=== PATIENT | female | born 1950 | race Caucasian/White ===

== ENCOUNTER 2017-08-22 23:02 | Emergency (ER) | payer MEDICARE, BC ==
--- NOTE | 2017-08-23 00:45 | EDM.PDOC ---
ED HPI GENERAL MEDICAL PROBLEM - General Chief Complaint: Respiratory Problem Stated Complaint: GOT A GEL IN HER MOUTH AND CAN'T STOP COUGHING Time Seen by Provider: 08/22/17 23:25 Source of Information: Reports: Patient History Limitations: Reports: No Limitations - History of Present Illness INITIAL COMMENTS - FREE TEXT/NARRATIVE: The patient had a scar to her upper lip. She saw her provider and she was put on some pracaderm a compounded substance from [facility] pharmacy. She put that on her lip tonight and she got some on her tongue and after that she got short of breath and started coughing. She had some gurgling lung sounds and her heard them. She is better now. She has no chest pain, fever, chills, abdominal pain, nausea or vomiting. Onset: Sudden Duration: Minutes: Severity: Moderate Improves with: Reports: None Worsens with: Reports: None Associated Symptoms: Reports: Cough, Shortness of Breath. Denies: Fever/Chills , Headaches, Nausea/Vomiting - Related Data Allergies Allergy/AdvReac Type Severity Reaction Status Date / Time sulfamethoxazole Allergy Hives Verified 08/22/17 23:08 [From Bactrim] trimethoprim [From Bactrim] Allergy Hives Verified 08/22/17 23:08 Home Meds: Home Meds . 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: Musculoskeletal History: Reports: Osteoarthritis, Other (See Below) Other Musculoskeletal History: Bunionectomy, - Past Surgical History Female Surgical History: Reports: Section Social & Family History - Tobacco Use Smoking Status *Q: Never Smoker ED ROS GENERAL - Review of Systems Review Of Systems: See Below Constitutional: Reports: No Symptoms HEENT: Reports: No Symptoms Respiratory: Reports: Shortness of Breath, Cough Cardiovascular: Reports: No Symptoms Endocrine: Reports: No Symptoms GI/Abdominal: Reports: No Symptoms : Reports: No Symptoms Musculoskeletal: Reports: No Symptoms Skin: Reports: No Symptoms ED EXAM, GENERAL - Physical Exam Exam: See Below Exam Limited By: No Limitations General Appearance: Alert, No Apparent Distress Ears: Normal External Exam Nose: Normal Inspection Head: Atraumatic, Normocephalic Neck: Normal Inspection Respiratory/Chest: No Respiratory Distress, Lungs Clear, Normal Breath Sounds Cardiovascular: Regular Rate, Rhythm, No Edema, No Murmur GI/Abdominal: Soft, Non-Tender, No Organomegaly Back Exam: Normal Inspection Extremities: Normal Inspection Neurological: Alert, Oriented, No Motor/Sensory Deficits Course - Vital Signs Last Recorded V/S: Last Vital Signs Temp 97.9 F 08/22/17 23:08 Pulse 99 08/22/17 23:08 Resp 16 08/22/17 23:08 BP 168/102 H 08/22/17 23:08 Pulse Ox 100 08/22/17 23:08 - Orders/Labs/Meds Orders: Active Orders 24 hr Category Date Time Status CXR [Chest 2V] [CR] Stat Exams 08/22/17 23:57 Taken - Re-Assessments/Exams Free Text/Narrative Re-Assessment/Exam: 08/23/17 00:47 I ordered a CXR and that looked good. I called poison control and they were not able to find any medicine like this and they said it is hard because it is compounded. He did not think he got enough to cause a toxic affect but she may have aspirated some and it is oily. Departure - Departure Time of Disposition: 01:00 Disposition: Home, Self-Care 01 Condition: Good Clinical Impression: Aspiration into airway Qualifiers: Encounter type: initial encounter Qualified Code(s): T17.908A - Unspecified foreign body in respiratory tract, part unspecified causing other injury, initial encounter - Discharge Information Referrals: Ileana Birmingham, RAIL OPERATIONS CONTROLLER [Primary Care Provider] - Forms: ED Department Discharge Additional Instructions: Call [facility] pharmacy on Friday and let them know what happened. Please return if you are worse. - My Orders Last 24 Hours: My Active Orders 08/22/17 23:57 CXR [Chest 2V] [CR] Stat - Assessment/Plan Last 24 Hours: My Active Orders 08/22/17 23:57 CXR [Chest 2V] [CR] Stat
--- NOTE | 2017-08-25 11:14 | CR ---
Chest: Two views of the chest were obtained. Comparison: No prior chest x-ray. Heart size is normal. Tortuous thoracic aorta is seen. Prior cervical spine surgery is noted. Equivocal increased perihilar markings are noted within the left side of the chest. Lungs otherwise are clear. Bony structures appear within normal limits for the patient's age. Impression: 1. Questionable left-sided bronchitis. 2. Other incidental findings as noted above. Diagnostic code #3
== END 2017-08-23 00:58 | disposition home or self-care (01) ==
LOC: JD.ED 23:02
DX: T17.890A Other foreign object in other parts of respiratory tract causing asphyxiation, initial encounter (principal); Z88.8 Allergy status to other drugs, medicaments and biological substances; Z88.2 Allergy status to sulfonamides
CPT/HCPCS: 71046; 71046-26; 99283

== ENCOUNTER 2019-04-14 07:30 | Inpatient (IN) | payer MEDICARE, BC ==
[~2019-04-14 07:30] MED LIST: Acetaminophen 325 MG Tab PO SCH; Acetaminophen/oxyCODONE 325-5 MG Tab PO PRN; Bisacodyl 5 MG Tab PO PRN; Cyclobenzaprine 10 MG Tab PO PRN; Lidocaine 1%/Sod Bicarbonate in NS 8.4% 1 ML Syringe IDERM PRN; Magnesium Hydroxide 400 MG/5 ML Susp 30 ML Cup PO PRN; Morphine 2 MG/ML SYRINGE IVPUSH PRN; Naloxone 0.4 MG/ML SDV IVPUSH PRN; Ondansetron 4 MG/2 ML SDV IVPUSH PRN; Pregabalin 25 MG Cap PO SCH; Sennosides 8.6 MG Tab PO PRN; Sodium Chloride 0.9% 10 ML Syringe FLUSH PRN; oxyCODONE ER 10 MG TAB.ER PO SCH
--- NOTE | 2019-04-14 07:57 | PCM.CONS ---
H&P History of Present Illness - General Date of Service: 04/14/19 Admit Problem/Dx: Admission Diagnosis/Problem Admission Diagnosis/Problem Osteoarthritis of hip Source of Information: Patient, Old Records, Provider, RN, RN Notes Reviewed History Limitations: Reports: No Limitations - History of Present Illness Initial Comments - Free Text/Narative: Stephie Bermudez is a 69 yo [address] patient of Dr. Dubois who is post-operative day 0 of right DANIEL. Hospital medicine was consulted for post-operative medical care of the following listed medical conditions. At this time she is resting comfortably in bed. Pain is controlled. She denies any chest pain, shortness of breath, palpitations, nausea, or vomiting. She carries a history of: HTN, GERD, Hypokalemia, Martinez's esophagus, BCC, Gout, H. Pylori infection, cervical disk disease, hiatal hernia. She was never a smoker. She is a full code. Her primary care provider is Angelika Jones PA-C . Right Hip Pain Score (Numeric/FACES): 5 - Related Data Allergies/Adverse Reactions: Allergies Allergy/AdvReac Type Severity Reaction Status Date / Time sulfamethoxazole Allergy Hives Verified 04/14/19 12:41 [From Bactrim] trimethoprim [From Bactrim] Allergy Hives Verified 04/14/19 12:41 Home Medications: Home Meds Aspirin [Halfprin] 81 mg PO DAILY 04/13/19 [History] Cholecalciferol (Vitamin D3) [Vitamin D3] 5,000 unit PO DAILY 04/13/19 [History] Diltiazem HCl [Diltiazem 12Hr ER] 90 mg PO DAILY 04/13/19 [History] Mometasone Furoate [Elocon] 1 dose TOP BID PRN 04/13/19 [History] Rosuvastatin [Crestor] 5 mg PO DAILY 04/13/19 [History] diphenhydrAMINE HCl [Benadryl] 25 mg PO DAILY PRN 04/13/19 [History] Past Medical History HEENT History: Reports: Impaired Vision Other HEENT History: Wears Cardiovascular History: Reports: Hypertension Respiratory History: Reports: None Gastrointestinal History: Reports: Colon Polyp, GERD, Helicobacter Pylori, Hiatal Hernia Other Gastrointestinal History: Martinez's esophagus Genitourinary History: Reports: 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: Musculoskeletal History: Reports: Osteoarthritis, Other (See Below) Other Musculoskeletal History: Bunionectomy bilateral Neurological History: Reports: Other (See Below) Other Neuro History: cervical disc disease Psychiatric History: Reports: None Endocrine/Metabolic History: Reports: None Hematologic History: Reports: None Immunologic History: Reports: None Oncologic (Cancer) History: Reports: None Dermatologic History: Reports: Other (See Below) Other Dermatologic History: basal cell carcinoma, cellulitis, rash, nevi excision - Past Surgical History Head Surgeries/Procedures: Reports: None Cardiovascular Surgical History: Reports: None Respiratory Surgical History: Reports: None GI Surgical History: Reports: Cholecystectomy, Colonoscopy, EGD Female Surgical History: Reports: Section Endocrine Surgical History: Reports: None Neurological Surgical History: Reports: Other (See Below) Other Neurological Surgeries/Procedures: spine surgery Oncologic Surgical History: Reports: None Dermatological Surgical History: Reports: None Social & Family History - Family History Family Medical History: Noncontributory - Tobacco Use Smoking Status *Q: Never Smoker Second Hand Smoke Exposure: No - Caffeine Use Caffeine Use: Reports: Soda - Recreational Drug Use Recreational Drug Use: No H&P Review of Systems - Review of Systems: Review Of Systems: See Below General: Reports: No Symptoms. Denies: Fever, Chills HEENT: Reports: No Symptoms. Denies: Headaches Pulmonary: Reports: No Symptoms. Denies: Shortness of Breath, Wheezing, Cough, Sputum Cardiovascular: Reports: No Symptoms. Denies: Chest Pain, Palpitations, Dyspnea on Exertion, Lightheadedness Gastrointestinal: Reports: No Symptoms. Denies: Abdominal Pain, Constipation, Diarrhea, Nausea, Vomiting Genitourinary: Reports: No Symptoms. Denies: Pain Musculoskeletal: Reports: Leg Pain (right) Skin: Reports: No Symptoms. Denies: Cyanosis Psychiatric: Reports: No Symptoms. Denies: Confusion Neurological: Reports: Difficulty Walking, Gait Disturbance. Denies: Pre- Existing Deficit Hematologic/Lymphatic: Reports: No Symptoms Immunologic: Reports: No Symptoms Exam - Exam Exam: See Below - Exam Quality Assessment: Supplemental Oxygen, DVT Prophylaxis. No: Urinary Catheter General: Alert, Oriented, Cooperative. No: Mild Distress HEENT: Conjunctiva Clear, EACs Clear, Hearing Intact, Mucosa Moist & [place], Nares Patent, Normal Nasal Septum, Posterior Pharynx Clear, PERRLA Neck: Supple, Trachea Midline Lungs: Clear to Auscultation, Normal Respiratory Effort Cardiovascular: Regular Rate, Regular Rhythm GI/Abdominal Exam: Normal Bowel Sounds, Soft, Non-Tender, No Distention (Female) Exam: Deferred Rectal (Female) Exam: Deferred Back Exam: Normal Inspection, Full Range of Motion Extremities: Normal Capillary Refill, Leg Pain (right ), Limited Range of Motion , Other (Bandage in place on right hip. Bandage is dry and intact. Cooling pack in place. ) Peripheral Pulses: 2+: Radial (L), Radial (R), Dorsalis Pedis (L), Dorsalis Pedis (R) Skin: Warm, Dry, Intact Neurological: Cranial Nerves Intact (Grossly ) Neuro Extensive - Mental Status: Alert, Oriented x3, Normal Mood/Affect Consult PN Assessment/Plan POD#: 0 Procedures: Procedures ASSAY OF LIPASE (09/26/17) ASSAY OF TROPONIN QUANT (09/26/17) COMPLETE CBC W/AUTO DIFF WBC (09/26/17) COMPREHEN METABOLIC PANEL (09/26/17) DRAIN/INJ JOINT/BURSA W/O US (10/10/17) DXA BONE DENSITY AXIAL (12/12/16) ECHO EXAM OF ABDOMEN (09/26/17) ELECTROCARDIOGRAM TRACING (09/26/17) EMERGENCY DEPT VISIT (09/26/17) EMERGENCY DEPT VISIT (08/22/17) HYDRATE IV INFUSION ADD-ON (09/26/17) OCCULT BLOOD FECES (09/26/17) ROUTINE VENIPUNCTURE (09/26/17) THER/PROPH/DIAG INJ IV PUSH (09/26/17) TX/PRO/DX INJ NEW DRUG ADDON (09/26/17) X-RAY EXAM CHEST 2 VIEWS (08/22/17) (1) S/P total hip arthroplasty SNOMED Code(s): 422606460414, 234524199928 Code(s): Z96.649 - PRESENCE OF UNSPECIFIED ARTIFICIAL HIP JOINT Priority: High Current Visit: Yes Qualifiers: Laterality: right Qualified Code(s): Z96.641 - Presence of right artificial hip joint (2) HTN (hypertension) SNOMED Code(s): 90617259 Code(s): I10 - ESSENTIAL (PRIMARY) HYPERTENSION Priority: Medium Current Visit: No Qualifiers: Hypertension type: unspecified Qualified Code(s): I10 - Essential (primary ) hypertension (3) GERD (gastroesophageal reflux disease) SNOMED Code(s): 151425927 Code(s): K21.9 - GASTRO-ESOPHAGEAL REFLUX DISEASE WITHOUT ESOPHAGITIS Priority: Medium Current Visit: No Qualifiers: Esophagitis presence: with esophagitis Qualified Code(s): K21.0 - Gastro- esophageal reflux disease with esophagitis (4) Hypokalemia SNOMED Code(s): 46486767 Code(s): E87.6 - HYPOKALEMIA Priority: Medium Current Visit: No (5) Barretts esophagus SNOMED Code(s): 128334138 Code(s): K22.70 - MARTINEZ'S ESOPHAGUS WITHOUT DYSPLASIA Priority: Medium Current Visit: No Qualifiers: Martinez's esophagus type: with dysplasia of unspecified degree Qualified Code(s): K22.719 - Martinez's esophagus with dysplasia, unspecified; K22.71 - Martinez's esophagus with dysplasia (6) Basal cell carcinoma SNOMED Code(s): 883794369 Code(s): C44.91 - BASAL CELL CARCINOMA OF SKIN, UNSPECIFIED Priority: Low Current Visit: No Qualifiers: Basal cell carcinoma location: unspecified site Qualified Code(s): C44.91 - Basal cell carcinoma of skin, unspecified (7) Gout SNOMED Code(s): 22160611 Code(s): M10.9 - GOUT, UNSPECIFIED Priority: Low Current Visit: No Qualifiers: Gout site: unspecified site Gout etiology: unspecified cause Chronicity: unspecified Qualified Code(s): M10.9 - Gout, unspecified (8) History of Helicobacter pylori infection SNOMED Code(s): 46498028481077016 Code(s): Z86.19 - PERSONAL HISTORY OF OTHER INFECTIOUS AND PARASITIC DISEASES Priority: Low Current Visit: No (9) Osteoarthritis SNOMED Code(s): 263338666 Code(s): M19.90 - UNSPECIFIED OSTEOARTHRITIS, UNSPECIFIED SITE Priority: High Current Visit: Yes Qualifiers: Osteoarthritis location: hip Osteoarthritis type: primary Laterality: right Qualified Code(s): M16.11 - Unilateral primary osteoarthritis, right hip (10) Cervical disc disease SNOMED Code(s): 906554412 Code(s): M50.90 - CERVICAL DISC DISORDER, UNSP, UNSPECIFIED CERVICAL REGION Current Visit: Yes (11) Hiatal hernia SNOMED Code(s): 86415006 Code(s): K44.9 - DIAPHRAGMATIC HERNIA WITHOUT OBSTRUCTION OR GANGRENE Current Visit: Yes Problem List Initiated/Reviewed/Updated: Yes Plan: I/P: Acute: S/P right total hip arthroplasty - post-operative day 0 -DVT prophylaxis and pain management per primary care team -PT/OT -IS/RT -Monitor oxygen saturation -Titrate oxygen as needed -Home medications reviewed -Vital signs stable -Monitor labs -Pre-operative Hgb was 15.5 -Pre-operative GFR was 67 -Pre-operative 12-lead EKG showed sinus rhythm with PACs at 60 BPM Osteoarthritis of right hip -Pain management per primary care team Chronic: HTN GERD Hypokalemia Martinez's esophagus BCC Gout History of H. Pylori Cervical disk disease Hiatal hernia Plan: CM for discharge planning GI prophylaxis Home medications as indicated Other orders as listed above Routine AM labs She is a full code. Her PCP is Angelika Jones PA-C Thank you for allowing us to participate in the care of this patient!! Requesting Provider: Dr. Dubois Date Consult Requested: 04/14/19 Patient History Reviewed: Yes Admission H&P Reviewed: Yes Notified Requestor: Yes
[2019-04-14] MEDS: Lactated Ringers 1,000 ML IV SCH ×2 (08:05→11:35)
--- NOTE | 2019-04-14 08:34 | PCM.PREANE ---
Preanesthetic Assessment - Anesthesia/Transfusion/Family Hx Anesthesia History: Prior Anesthesia Without Reaction Transfusion History: No Prior Transfusion(s) Intubation History: Unknown - Review of Systems General: No Symptoms Pulmonary: No Symptoms Cardiovascular: No Symptoms Gastrointestinal: No Symptoms Neurological: No Symptoms Other: Reports: None - Physical Assessment NPO Status Date: 04/13/19 NPO Status Time: 19:00 Vital Signs: Last Vital Signs Temp 97.5 F 04/14/19 07:45 Pulse 74 04/14/19 07:45 Resp 16 04/14/19 07:45 BP 142/89 H 04/14/19 07:45 Pulse Ox 96 04/14/19 07:45 Height: 1.52 m Weight: 73.028 kg ASA Class: 2 Mental Status: Alert & Oriented x3 Airway Class: Mallampati = 2 Dentition: Reports: Normal Dentition, [place](s), Bridge Thyro-Mental Finger Breadths: 3 Mouth Opening Finger Breadths: 3 ROM/Head Extension: Limited/Partial Lungs: Clear to Auscultation, Normal Respiratory Effort Cardiovascular: Regular Rate, Regular Rhythm - Lab Values: Laboratory Last Values MRSA (PCR) Negative 03/29/19 09:30 - Allergies Allergies/Adverse Reactions: Allergies Allergy/AdvReac Type Severity Reaction Status Date / Time sulfamethoxazole Allergy Hives Verified 04/13/19 13:54 [From Bactrim] trimethoprim [From Bactrim] Allergy Hives Verified 04/13/19 13:54 - Acknowledgements Anesthesia Type Planned: Spinal Pt an Appropriate Candidate for the Planned Anesthesia: Yes Alternatives and Risks of Anesthesia Discussed w Pt/Guardian: Yes Pt/Guardian Understands and Agrees with Anesthesia Plan: Yes PreAnesthesia Questionnaire HEENT History: Reports: Impaired Vision Other HEENT History: Wears Cardiovascular History: Reports: Hypertension Gastrointestinal History: Reports: Colon Polyp, GERD, Helicobacter Pylori, Hiatal Hernia Other Gastrointestinal History: 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's 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: Musculoskeletal History: Reports: Osteoarthritis, Other (See Below) Other Musculoskeletal History: Bunionectomy bilateral Neurological History: Reports: Other (See Below) Other Neuro History: cervical disc disease Endocrine/Metabolic History: Reports: None Hematologic History: Reports: None Immunologic History: Reports: None Oncologic (Cancer) History: Reports: None Dermatologic History: Reports: Other (See Below) Other Dermatologic History: basal cell carcinoma, cellulitis, rash, nevi excision - Past Surgical History Head Surgeries/Procedures: Reports: None Cardiovascular Surgical History: Reports: None Respiratory Surgical History: Reports: None GI Surgical History: Reports: Cholecystectomy, Colonoscopy, EGD Female Surgical History: Reports: Section Endocrine Surgical History: Reports: None Neurological Surgical History: Reports: Other (See Below) Other Neurological Surgeries/Procedures: spine surgery Oncologic Surgical History: Reports: None Dermatological Surgical History: Reports: None - SUBSTANCE USE Smoking Status *Q: Never Smoker Second Hand Smoke Exposure: No Recreational Drug Use History: No - HOME MEDS Home Medications: Home Meds Aspirin [Halfprin] 81 mg PO DAILY 04/13/19 [History] Cholecalciferol (Vitamin D3) [Vitamin D3] 5,000 unit PO DAILY 04/13/19 [History] Diltiazem HCl [Diltiazem 12Hr ER] 90 mg PO DAILY 04/13/19 [History] Mometasone Furoate [Elocon] 1 dose TOP BID PRN 04/13/19 [History] Rosuvastatin [Crestor] 5 mg PO DAILY 04/13/19 [History] diphenhydrAMINE HCl [Benadryl] 25 mg PO DAILY PRN 04/13/19 [History] - CURRENT (IN HOUSE) MEDS Current Meds: Current Medications Acetaminophen (Tylenol) 975 mg PO ONETIME KIMI Stop: 04/14/19 16:00 Last Admin: 04/14/19 07:50 Dose: 975 mg Aspirin (Ecotrin) 325 mg PO BID KIMI Bisacodyl (Dulcolax) 5 mg PO DAILY PRN PRN Reason: Constipation Morphine Sulfate 8 mg/Epinephrine HCl 0.3 mg/Cefuroxime Sodium 750 mg/Ketorolac Tromethamine 30 mg/Sodium Chloride 7.9 ml 0 mg .XX ASDIRECTED PRN PRN Reason: Pain Stop: 04/14/19 11:00 Cyclobenzaprine HCl (Flexeril) 10 mg PO TID PRN PRN Reason: Spasms Docusate Sodium (Colace) 100 mg PO BID KIMI Famotidine (Pepcid) 20 mg PO Q12H KIMI Lactated Ringer's (Ringers, Lactated) 1,000 mls @ 125 mls/hr IV ASDIRECTED KIMI Stop: 04/14/19 23:00 Cefazolin Sodium/Dextrose 2 gm (/ Premix) 50 mls @ 100 mls/hr IV Q8H [facility] Stop: 04/14/19 23:14 Ketorolac Tromethamine (Toradol) 15 mg IVPUSH Q6H PRN PRN Reason: Pain Lidocaine/Sodium Bicarbonate (Buffered Lidocaine 1% In Ns 8.4%) 0.25 ml IDERM ONETIME PRN PRN Reason: Prior to IV Start Stop: 04/14/19 18:00 Magnesium Hydroxide (Milk Of Magnesia) 30 ml PO BID PRN PRN Reason: Constipation Morphine Sulfate (Morphine) 2 mg IVPUSH Q2H PRN PRN Reason: Breakthrough Pain Naloxone HCl (Narcan) 0.1 mg IVPUSH Q5M PRN PRN Reason: Oversedation Ondansetron HCl (Zofran) 4 mg IVPUSH Q6H PRN PRN Reason: Nausea/Vomiting Oxycodone HCl (Oxycontin) 10 mg PO ONETIME KIMI Stop: 04/14/19 16:00 Last Admin: 04/14/19 07:50 Dose: 10 mg Oxycodone/Acetaminophen (Percocet 325-5 Mg) 1 - 2 tab PO Q4H PRN PRN Reason: Pain Pregabalin (Lyrica) 50 mg PO ONETIME KIMI Stop: 04/14/19 16:00 Last Admin: 04/14/19 07:50 Dose: 50 mg Senna (Senna) 8.6 mg PO BID PRN PRN Reason: Constipation Sodium Chloride (Saline Flush) 10 ml FLUSH ASDIRECTED PRN PRN Reason: Keep Vein Open Stop: 04/14/19 18:00 Discontinued Medications Bupivacaine HCl (Sensorcaine-Mpf 0.25%) Confirm Administered Dose 30 ml .ROUTE .STK-MED ONE Stop: 04/14/19 08:09 Cefazolin Sodium (Ancef) Confirm Administered Dose 2 gm .ROUTE .STK-MED ONE Stop: 04/14/19 08:09 Iodine (Iodine 2% Mild Tincture) Confirm Administered Dose 30 ml .ROUTE .STK- MED ONE Stop: 04/14/19 08:09 Tranexamic Acid (Cyklokapron) Confirm Administered Dose 1,000 mg .ROUTE .STK- MED ONE Stop: 04/14/19 08:09 Vancomycin HCl (Vancomycin) Confirm Administered Dose 1 gm .ROUTE .[facility]-MED ONE Stop: 04/14/19 08:09
[2019-04-14] MEDS ORDERED: Lidocaine 1% 4 ML ONE (08:40)
[2019-04-14] MEDS ORDERED: Midazolam 1 MG/ML 2 ML SDV ONE (08:41)
[2019-04-14] MEDS ORDERED: fentaNYL 100 MCG/2 ML SDV ONE (08:41)
[2019-04-14] MEDS ORDERED: EPINEPHrine 1 MG/ML SDV ONE (08:42)
[2019-04-14] MEDS ORDERED: Propofol 200 MG/20 ML SDV ONE ×2 (08:44→09:52)
[2019-04-14] MEDS ORDERED: ceFAZolin 1 GM Vial ONE (09:10)
[2019-04-14] MEDS: Iodine/Sodium Iodide 2% Tincture 30 ML Bottle ONE ×2 (09:41→10:04)
[2019-04-14] MEDS: Bupivacaine 0.25% 10 ML SDV ONE ×2 (09:42→10:10)
[2019-04-14] MEDS: ceFAZolin 1 GM Vial ONE ×2 (09:42→10:08)
[2019-04-14] MEDS: Morphine 8 MG, EPINEPHrine 0.3 MG, Cefuroxime 750 MG, Ketorolac 30 MG, Sodium Chloride ... PRN ×10 (09:42→10:09)
[2019-04-14] MEDS: Vancomycin 1 GM SDV ONE ×2 (09:43→10:12)
[2019-04-14] MEDS ORDERED: Ondansetron 4 MG/2 ML SDV ONE (09:46)
--- NOTE | 2019-04-14 10:59 | PCM.POSTAN ---
POST ANESTHESIA ASSESSMENT - MENTAL STATUS Mental Status: Somnolent - VITAL SIGNS Vital Signs: Last Vital Signs Temp 97.5 F 04/14/19 10:44 Pulse 77 04/14/19 10:44 Resp 16 04/14/19 10:44 BP 79/43 L 04/14/19 10:44 Pulse Ox 97 04/14/19 10:44 - RESPIRATORY Respiratory Status: Respiratory Rate WNL, Airway Patent, O2 Saturation Stable - CARDIOVASCULAR CV Status: Pulse Rate WNL, Low Blood Pressure (IV fluids bolus being given) - GASTROINTESTINAL GI Status: No Symptoms - POST OP HYDRATION Hydration Status: Adequate & Stable
[2019-04-14] MEDS ORDERED: diphenhydrAMINE 25 MG Cap PO PRN (11:07)
[2019-04-14] MEDS ORDERED: MOMETASONE FUROATE TOP PRN ×2 (11:07→14:44)
--- NOTE | 2019-04-14 12:11 | CR ---
Pelvis and right hip: AP view of the pelvis was obtained with lateral view of the right hip. Comparison: No prior pelvis or hip exam. Right hip prosthesis is seen. Components are aligned. Soft tissue air is noted from surgical procedure. Joint space narrowing is noted within the left hip. No acute fracture or other abnormality is seen. Impression: 1. Recently placed right hip prosthesis. 2. Degenerative change noted within the left hip. Diagnostic code #2 This report was dictated in [place] Standard Time
[2019-04-14] MEDS ORDERED: Ketorolac 15 MG/ML SDV IVPUSH PRN (12:30)
[2019-04-14] MEDS ORDERED: Bisacodyl 5 MG Tab PO PRN (15:00)
[2019-04-14] MEDS ORDERED: Cyclobenzaprine 10 MG Tab PO PRN (15:00)
[2019-04-14] MEDS ORDERED: Magnesium Hydroxide 400 MG/5 ML Susp 30 ML Cup PO PRN (15:02)
[2019-04-14] MEDS ORDERED: Morphine 2 MG/ML SYRINGE IVPUSH PRN (15:02)
[2019-04-14] MEDS ORDERED: Ondansetron 4 MG/2 ML SDV IVPUSH PRN (15:03)
[2019-04-14] MEDS ORDERED: Naloxone 0.4 MG/ML SDV IVPUSH PRN (15:03)
[2019-04-14] MEDS ORDERED: Sennosides 8.6 MG Tab PO PRN (15:03)
[2019-04-14] MEDS: Acetaminophen/oxyCODONE 325-5 MG Tab PO PRN ×2 (15:12→20:23)
[2019-04-14] MEDS: ceFAZolin 2 GM in Premix Bag 1 BAG IV SCH (17:19)
[2019-04-14] MEDS: Famotidine 20 MG Tab PO SCH (20:23)
[2019-04-14] MEDS: Docusate Sodium 100 MG Cap PO SCH (20:23)
[2019-04-14] MEDS ORDERED: Docusate Sodium 100 MG Cap PO SCH (21:00)
[2019-04-14] MEDS ORDERED: Famotidine 20 MG Tab PO SCH (21:00)
[2019-04-15] MEDS: ceFAZolin 2 GM in Premix Bag 1 BAG IV SCH ×2 (00:59→08:29)
[2019-04-15] MEDS: Acetaminophen/oxyCODONE 325-5 MG Tab PO PRN (05:02)
[2019-04-15] MEDS ORDERED: oxyCODONE 5 MG Tab PO PRN (06:37)
--- NOTE | 2019-04-15 06:45 | PCM.SURGPN ---
- General Info Date of Service: 04/15/19 POD#: 1 Functional Status: Reports: Pain Controlled, Tolerating Diet, Ambulating, Urinating, Incentive Spirometry, Other (The pt had an emesis this morning. She has otherwise been "doing good".) - Patient Data Vitals - Most Recent: Last Vital Signs Temp 98.1 F 04/15/19 05:03 Pulse 95 04/15/19 05:03 Resp 18 04/15/19 05:03 BP 121/60 04/15/19 05:03 Pulse Ox 92 L 04/15/19 05:03 Weight - Most Recent: 167 lb 14.4 oz I&O - Last 24 Hours: Intake & Output 04/14/19 04/14/19 04/15/19 14:59 22:59 06:59 Intake Total 1200 1320 450 Output Total 1500 Balance 1200 1320 -1050 Lab Results Last 24 Hrs: Laboratory Results - last 24 hr 04/14/19 04/15/19 04/15/19 Range/Units 08:04 05:15 05:15 WBC 10.82 H (3.98-10.04) K/mm3 RBC 4.47 (3.98-5.22) M/mm3 Hgb 13.2 (11.2-15.7) gm/dl Hct 41.2 (34.1-44.9) % MCV 92.2 (79.4-94.8) fl MCH 29.5 (25.6-32.2) pg MCHC 32.0 L (32.2-35.5) g/dl RDW Std Deviation 47.1 H (36.4-46.3) fL Plt Count 213 (182-369) K/mm3 MPV 10.5 (9.4-12.3) fl Sodium 138 (136-145) mEq/L Potassium 3.7 (3.5-5.1) mEq/L Chloride 102 (98-107) mEq/L Carbon Dioxide 26 (21-32) mEq/L Anion Gap 13.7 (5-15) BUN 12 (7-18) mg/dL Creatinine 0.9 (0.55-1.02) mg/dL Est Cr Clr Drug Dosing 42.97 mL/min Estimated GFR (MDRD) > 60 (>60) mL/min BUN/Creatinine Ratio 13.3 L (14-18) Glucose 124 H (80-115) mg/dL Calcium 8.5 (8.5-10.1) mg/dL Total Bilirubin 0.6 (0.2-1.0) mg/dL AST 221 H (15-37) U/L ALT 256 H (14-59) U/L Alkaline Phosphatase 110 (46-116) U/L Total Protein 6.9 (6.4-8.2) g/dl Albumin 3.3 L (3.4-5.0) g/dl Globulin 3.6 gm/dL Albumin/Globulin Ratio 0.9 L (1-2) Blood Type A POSITIVE Gel Antibody Screen Negative Med Orders - Current: Current Medications Aspirin (Ecotrin) 325 mg PO BID [facility] Bisacodyl (Dulcolax) 5 mg PO DAILY PRN PRN Reason: Constipation Cholecalciferol (Vitamin D3) 5,[address] [facility] Cyclobenzaprine HCl (Flexeril) 10 mg PO TID PRN PRN Reason: Spasms Diltiazem HCl (Cardizem) [address] [facility] Diphenhydramine HCl (Benadryl) 25 mg PO DAILY PRN PRN Reason: Allergies Docusate Sodium (Colace) [address] [facility] Last Admin: 04/14/19 20:23 Dose: 100 mg Famotidine (Pepcid) [address] [facility] Last Admin: 04/14/19 20:23 Dose: 20 mg Cefazolin Sodium/Dextrose 2 gm (/ Premix) 50 mls @ 100 mls/hr IV Q8H [facility] Stop: 04/15/19 09:44 Last Admin: 04/15/19 00:59 Dose: 100 mls/hr Ketorolac Tromethamine (Toradol) 15 mg IVPUSH Q6H PRN PRN Reason: Pain Magnesium Hydroxide (Milk Of Magnesia) 30 ml PO BID PRN PRN Reason: Constipation Morphine Sulfate (Morphine) 2 mg IVPUSH Q2H PRN PRN Reason: Breakthrough Pain Naloxone HCl (Narcan) 0.1 mg IVPUSH Q5M PRN PRN Reason: Oversedation Ondansetron HCl (Zofran) 4 mg IVPUSH Q6H PRN PRN Reason: Nausea/Vomiting Oxycodone HCl (Oxycodone) 5 - 10 mg PO Q4H PRN PRN Reason: Pain Mometasone Furoate [ (Elocon] Ointment) 0 each TOP BID PRN PRN Reason: Itching Rosuvastatin Calcium (Crestor) [address] [facility] Senna (Senna) 8.6 mg PO BID PRN PRN Reason: Constipation Discontinued Medications Acetaminophen (Tylenol) [address] [facility] Stop: 04/14/19 16:00 Last Admin: 04/14/19 07:50 Dose: 975 mg Bisacodyl (Dulcolax) 5 mg PO DAILY PRN PRN Reason: Constipation Bupivacaine HCl (Sensorcaine-Mpf 0.25%) Confirm Administered Dose 30 ml .ROUTE .STK-MED ONE Stop: 04/14/19 08:09 Last Admin: 04/14/19 10:10 Dose: 30 ml Cefazolin Sodium (Ancef) Confirm Administered Dose 2 gm .ROUTE .STK-MED ONE Stop: 04/14/19 08:09 Last Admin: 04/14/19 10:08 Dose: 2 gm Cefazolin Sodium (Ancef) Confirm Administered Dose 2 gm .ROUTE .STK-MED ONE Stop: 04/14/19 09:11 Morphine Sulfate 8 mg/Epinephrine HCl 0.3 mg/Cefuroxime Sodium 750 mg/Ketorolac Tromethamine 30 mg/Sodium Chloride 7.9 ml 0 mg .XX ASDIRECTED PRN PRN Reason: Pain Stop: 04/14/19 11:00 Last Admin: 04/14/19 10:09 Dose: 788.3 mg Cyclobenzaprine HCl (Flexeril) 10 mg PO TID PRN PRN Reason: Spasms Docusate Sodium (Colace) [address] [facility] Epinephrine HCl (Adrenalin) Confirm Administered Dose 1 mg .ROUTE .STK-MED ONE Stop: 04/14/19 08:43 Famotidine (Pepcid) [address] [facility] Fentanyl (Sublimaze) Confirm Administered Dose 100 mcg .ROUTE .STK-MED ONE Stop: 04/14/19 08:42 Lactated Ringer's (Ringers, Lactated) 1,000 mls @ 125 mls/hr IV ASDIRECTED [facility] Stop: 04/14/19 23:00 Last Admin: 04/14/19 11:35 Dose: 125 mls/hr Lidocaine HCl (Xylocaine-Mpf 1%) Confirm Administered Dose 4 mls @ as directed .ROUTE .STK-MED ONE Stop: 04/14/19 08:41 Iodine (Iodine 2% Mild Tincture) Confirm Administered Dose 30 ml .ROUTE .STK- MED ONE Stop: 04/14/19 08:09 Last Admin: 04/14/19 10:04 Dose: 18 ml Lidocaine/Sodium Bicarbonate (Buffered Lidocaine 1% In Ns 8.4%) 0.25 ml IDERM ONETIME PRN PRN Reason: Prior to IV Start Stop: 04/14/19 18:00 Last Admin: 04/14/19 08:04 Dose: 0.25 ml Magnesium Hydroxide (Milk Of Magnesia) 30 ml PO BID PRN PRN Reason: Constipation Midazolam HCl (Versed 1 Mg/Ml) Confirm Administered Dose 2 mg .ROUTE .STK-MED ONE Stop: 04/14/19 08:42 Miscellaneous Medication (Phenylephrine 1 Mg/10 Ml-Ns) Confirm Administered Dose 1 mg IV .STK-MED ONE Stop: 04/14/19 09:41 Miscellaneous Medication (Phenylephrine 1 Mg/10 Ml-Ns) Confirm Administered Dose 1 mg IV .STK-MED ONE Stop: 04/14/19 13:37 Morphine Sulfate (Morphine) 2 mg IVPUSH Q2H PRN PRN Reason: Breakthrough Pain Naloxone HCl (Narcan) 0.1 mg IVPUSH Q5M PRN PRN Reason: Oversedation Ondansetron HCl (Zofran) 4 mg IVPUSH Q6H PRN PRN Reason: Nausea/Vomiting Ondansetron HCl (Zofran) Confirm Administered Dose 4 mg .ROUTE .STK-MED ONE Stop: 04/14/19 09:47 Oxycodone HCl (Oxycontin) 10 mg PO ONETIME [facility] Stop: 04/14/19 16:00 Last Admin: 04/14/19 07:50 Dose: 10 mg Oxycodone/Acetaminophen (Percocet 325-5 Mg) 1 - 2 tab PO Q4H PRN PRN Reason: Pain Oxycodone/Acetaminophen (Percocet 325-5 Mg) 1 - 2 tab PO Q4H PRN PRN Reason: Pain Last Admin: 04/15/19 05:02 Dose: 2 tab Mometasone Furoate [ (Elocon] 1 Dose) 0 each TOP BID PRN PRN Reason: Itching Pregabalin (Lyrica) 50 mg PO ONETIME [facility] Stop: 04/14/19 16:00 Last Admin: 04/14/19 07:50 Dose: 50 mg Propofol (Diprivan 20 Ml) Confirm Administered Dose 400 mg .ROUTE .STK-MED ONE Stop: 04/14/19 08:45 Propofol (Diprivan 20 Ml) Confirm Administered Dose 200 mg .ROUTE .STK-MED ONE Stop: 04/14/19 09:53 Senna (Senna) 8.6 mg PO BID PRN PRN Reason: Constipation Sodium Chloride (Saline Flush) 10 ml FLUSH ASDIRECTED PRN PRN Reason: Keep Vein Open Stop: 04/14/19 18:00 Tranexamic Acid (Cyklokapron) Confirm Administered Dose 1,000 mg .ROUTE .STK- MED ONE Stop: 04/14/19 08:09 Last Admin: 04/14/19 10:17 Dose: 1,000 mg Vancomycin HCl (Vancomycin) Confirm Administered Dose 1 gm .ROUTE .STK-MED ONE Stop: 04/14/19 08:09 Last Admin: 04/14/19 10:12 Dose: 1 gm - Exam Wound/Incisions: Dressing Dry and Intact General: Alert, Cooperative, No Acute Distress Lungs: Normal Respiratory Effort Extremities: Other (NVS intact. Right thigh soft. Julia's negtive.) Sepsis Event Note - Evaluation Sepsis Screening Result: No Definite Risk - Focused Exam Vital Signs: Vital Signs Temp Pulse Resp BP Pulse Ox 04/15/19 05:03 98.1 F 95 18 121/60 92 L 04/15/19 00:58 98.4 F 79 20 115/55 L 92 L 04/14/19 20:22 98.4 F 80 18 123/68 95 Date Exam was Performed: 04/15/19 Time Exam was Performed: : - Problem List Review Problem List Initiated/Reviewed/Updated: Yes - My Orders Last 24 Hours: Active Orders 24 hr Category Date Time Status Patient Status [ADT] Routine ADT 04/14/19 06:37 Active Ambulate [RC] BID Care 04/14/19 06:37 Active Antiembolic Devices [RC] BID Care 04/14/19 06:37 Active Notify Provider Consults [RC] ASDIRECTED Care 04/14/19 06:39 Active Oxygen Therapy [RC] PRN Care 04/14/19 06:37 Active Pulse Oximetry [RC] ASDIRECTED Care 04/14/19 10:45 Active RT Incentive Spirometry [RC] Q1HWA Care 04/14/19 06:35 Active Ready for Discharge [RC] PER UNIT ROUTINE Care 04/15/19 06:40 Active Verify Patient Consent Obtain [RC] ASDIRECTED Care 04/14/19 07:00 Inactive Vital Signs [RC] Q4HR Care 04/14/19 06:37 Active Consult to Physician [CONS] Routine Cons 04/14/19 06:37 Ordered OT Evaluation and Treatment [CONS] Routine Cons 04/14/19 06:35 Active PT Evaluation and Treatment [CONS] Routine Cons 04/14/19 06:35 Active Regular Diet [DIET] Diet 04/14/19 Lunch Active Aspirin [Ecotrin] Med 04/15/19 09:00 Active 325 mg PO BID Cholecalciferol (Vitamin D3) [Vitamin D3] Med 04/15/19 09:00 Active 5,000 unit PO DAILY Cyclobenzaprine [Flexeril] Med 04/14/19 15:00 Active 10 mg PO TID PRN Diltiazem IR [Cardizem] Med 04/15/19 09:00 Active 90 mg PO DAILY Docusate Sodium [Colace] Med 04/14/19 21:00 Active 100 mg PO BID Famotidine [Pepcid] Med 04/14/19 21:00 Active 20 mg PO Q12H Ketorolac [Toradol] Med 04/14/19 12:30 Active 15 mg IVPUSH Q6H PRN Magnesium Hydroxide [Milk of Magnesia] Med 04/14/19 15:02 Active 30 ml PO BID PRN Morphine Med 04/14/19 15:02 Active 2 mg IVPUSH Q2H PRN Naloxone [Narcan] Med 04/14/19 15:03 Active 0.1 mg IVPUSH Q5M PRN Ondansetron [Zofran] Med 04/14/19 15:03 Active 4 mg IVPUSH Q6H PRN Patient's Own Medication [Ptom] Med 04/14/19 14:44 Active 0 each TOP BID PRN Rosuvastatin [Crestor] Med 04/15/19 09:00 Active 5 mg PO DAILY Sennosides [Senna] Med 04/14/19 15:03 Active 8.6 mg PO BID PRN bisacodyL [Dulcolax] Med 04/14/19 15:00 Active 5 mg PO DAILY PRN ceFAZolin [Ancef] 2 gm Med 04/14/19 17:15 Active Premix Bag 1 bag IV Q8H diphenhydrAMINE [Benadryl] Med 04/14/19 11:07 Active 25 mg PO DAILY PRN oxyCODONE Med 04/15/19 06:37 Ordered 5 - 10 mg PO Q4H PRN Antiembolic Hose [OM.PC] Per Unit Routine Oth 04/14/19 06:38 Ordered Hip Precautions Posterior [OM.PC] Routine Oth 04/14/19 06:35 Ordered Ice Therapy [OM.PC] Per Unit Routine Oth 04/14/19 06:38 Ordered Medication Administration Instruction [OM.PC] Routine Oth 04/14/19 07:00 Ordered Sequential Compression Device [OM.PC] Per Unit Routine Oth 04/14/19 06:35 Ordered Resuscitation Status Routine Resus Stat 04/14/19 06:37 Ordered Medication Orders Aspirin (Ecotrin) 325 mg PO BID [facility] Bisacodyl (Dulcolax) 5 mg PO DAILY PRN PRN Reason: Constipation Cholecalciferol (Vitamin D3) 5,000 unit PO DAILY [facility] Cyclobenzaprine HCl (Flexeril) 10 mg PO TID PRN PRN Reason: Spasms Diltiazem HCl (Cardizem) 90 mg PO DAILY [facility] Diphenhydramine HCl (Benadryl) 25 mg PO DAILY PRN PRN Reason: Allergies Docusate Sodium (Colace) [address] [facility] Last Admin: 04/14/19 20:23 Dose: 100 mg Famotidine (Pepcid) [address] [facility] Last Admin: 04/14/19 20:23 Dose: 20 mg Cefazolin Sodium/Dextrose 2 gm (/ Premix) 50 mls @ 100 mls/hr IV Q8H [facility] Stop: 04/15/19 09:44 Last Admin: 04/15/19 00:59 Dose: 100 mls/hr Infusion: 04/14/19 17:49 Dose: 100 mls/hr Admin: 04/14/19 17:19 Dose: 100 mls/hr Ketorolac Tromethamine (Toradol) 15 mg IVPUSH Q6H PRN PRN Reason: Pain Magnesium Hydroxide (Milk Of Magnesia) 30 ml PO BID PRN PRN Reason: Constipation Morphine Sulfate (Morphine) 2 mg IVPUSH Q2H PRN PRN Reason: Breakthrough Pain Naloxone HCl (Narcan) 0.1 mg IVPUSH Q5M PRN PRN Reason: Oversedation Ondansetron HCl (Zofran) 4 mg IVPUSH Q6H PRN PRN Reason: Nausea/Vomiting Oxycodone HCl (Oxycodone) 5 - 10 mg PO Q4H PRN PRN Reason: Pain Mometasone Furoate [ (Elocon] Ointment) 0 each TOP BID PRN PRN Reason: Itching Rosuvastatin Calcium (Crestor) 5 mg PO DAILY [facility] Senna (Senna) 8.6 mg PO BID PRN PRN Reason: Constipation - Assessment Assessment (Free Text/Narrative):: POD#1 - right DANIEL - Plan Plan (Free Text/Narrative):: 1. Discharge to home today if cleared by Hospitalist service and therapies. 2. WBAT RLE. DANIEL precautions. 3. 325mg ASA PO BID, frequent mobility, TEDs. 4. Hgb 13.2. today. 5. LFTs elevated. Percocet d/c and oxycodone initiated. Pt to f/u with PCP. The pt's case was discussed with Dr. Dubois.
--- NOTE | 2019-04-15 07:31 | PCM.CONSN ---
- General Info Date of Service: 04/15/19 Admission Dx/Problem (Free Text): Admission Diagnosis/Problem Admission Diagnosis/Problem Osteoarthritis of hip Functional Status: Reports: Pain Controlled, Tolerating Diet, Ambulating, Urinating, Incentive Spirometry. Denies: New Symptoms - Review of Systems General: Reports: No Symptoms. Denies: Fever, Chills HEENT: Reports: No Symptoms. Denies: Headaches, Sore Throat Pulmonary: Reports: No Symptoms. Denies: Shortness of Breath, Cough, Sputum, Wheezing Cardiovascular: Reports: No Symptoms. Denies: Chest Pain, Palpitations, Dyspnea on Exertion Gastrointestinal: Reports: Nausea (occasional - taking zofran now ), Vomiting ( occasional ). Denies: Abdominal Pain, Constipation, Diarrhea Genitourinary: Reports: No Symptoms. Denies: Pain Musculoskeletal: Reports: Leg Pain Skin: Reports: No Symptoms. Denies: Cyanosis Neurological: Reports: Difficulty Walking, Gait Disturbance. Denies: Confusion Psychiatric: Reports: No Symptoms - Patient Data Vitals - Most Recent: Last Vital Signs Temp 98.1 F 04/15/19 05:03 Pulse 95 04/15/19 05:03 Resp 18 04/15/19 05:03 BP 121/60 04/15/19 05:03 Pulse Ox 92 L 04/15/19 05:03 Weight - Most Recent: 167 lb 14.4 oz I&O - Last 24 Hours: Intake & Output 04/14/19 04/15/19 04/15/19 22:59 06:59 14:59 Intake Total 1320 450 Output Total 1500 Balance 1320 -1050 Lab Results Last 24 Hours: Laboratory Results - last 24 hr 04/14/19 04/15/19 04/15/19 Range/Units 08:04 05:15 05:15 WBC 10.82 H (3.98-10.04) K/mm3 RBC 4.47 (3.98-5.22) M/mm3 Hgb 13.2 (11.2-15.7) gm/dl Hct 41.2 (34.1-44.9) % MCV 92.2 (79.4-94.8) fl MCH 29.5 (25.6-32.2) pg MCHC 32.0 L (32.2-35.5) g/dl RDW Std Deviation 47.1 H (36.4-46.3) fL Plt Count 213 (182-369) K/mm3 MPV 10.5 (9.4-12.3) fl Sodium 138 (136-145) mEq/L Potassium 3.7 (3.5-5.1) mEq/L Chloride 102 (98-107) mEq/L Carbon Dioxide 26 (21-32) mEq/L Anion Gap 13.7 (5-15) BUN 12 (7-18) mg/dL Creatinine 0.9 (0.55-1.02) mg/dL Est Cr Clr Drug Dosing 42.97 mL/min Estimated GFR (MDRD) > 60 (>60) mL/min BUN/Creatinine Ratio 13.3 L (14-18) Glucose 124 H (80-115) mg/dL Calcium 8.5 (8.5-10.1) mg/dL Total Bilirubin 0.6 (0.2-1.0) mg/dL AST 221 H (15-37) U/L ALT 256 H (14-59) U/L Alkaline Phosphatase 110 (46-116) U/L Total Protein 6.9 (6.4-8.2) g/dl Albumin 3.3 L (3.4-5.0) g/dl Globulin 3.6 gm/dL Albumin/Globulin Ratio 0.9 L (1-2) Blood Type A POSITIVE Gel Antibody Screen Negative Med Orders - Current: Current Medications Aspirin (Ecotrin) 325 mg PO BID [facility] Bisacodyl (Dulcolax) 5 mg PO DAILY PRN PRN Reason: Constipation Cholecalciferol (Vitamin D3) 5,000 unit PO DAILY [facility] Cyclobenzaprine HCl (Flexeril) 10 mg PO TID PRN PRN Reason: Spasms Diltiazem HCl (Cardizem) 90 mg PO DAILY [facility] Diphenhydramine HCl (Benadryl) 25 mg PO DAILY PRN PRN Reason: Allergies Docusate Sodium (Colace) 100 mg PO BID [facility] Last Admin: 04/14/19 20:23 Dose: 100 mg Famotidine (Pepcid) 20 mg PO Q12H [facility] Last Admin: 04/14/19 20:23 Dose: 20 mg Cefazolin Sodium/Dextrose 2 gm (/ Premix) 50 mls @ 100 mls/hr IV Q8H [facility] Stop: 04/15/19 09:44 Last Admin: 04/15/19 00:59 Dose: 100 mls/hr Ketorolac Tromethamine (Toradol) 15 mg IVPUSH Q6H PRN PRN Reason: Pain Magnesium Hydroxide (Milk Of Magnesia) 30 ml PO BID PRN PRN Reason: Constipation Morphine Sulfate (Morphine) 2 mg IVPUSH Q2H PRN PRN Reason: Breakthrough Pain Naloxone HCl (Narcan) 0.1 mg IVPUSH Q5M PRN PRN Reason: Oversedation Ondansetron HCl (Zofran) 4 mg IVPUSH Q6H PRN PRN Reason: Nausea/Vomiting Oxycodone HCl (Oxycodone) 5 - 10 mg PO Q4H PRN PRN Reason: Pain Mometasone Furoate [ (Elocon] Ointment) 0 each TOP BID PRN PRN Reason: Itching Rosuvastatin Calcium (Crestor) 5 mg PO DAILY [facility] Senna (Senna) 8.6 mg PO BID PRN PRN Reason: Constipation Discontinued Medications Acetaminophen (Tylenol) 975 mg PO ONETIME [facility] Stop: 04/14/19 16:00 Last Admin: 04/14/19 07:50 Dose: 975 mg Bisacodyl (Dulcolax) 5 mg PO DAILY PRN PRN Reason: Constipation Bupivacaine HCl (Sensorcaine-Mpf 0.25%) Confirm Administered Dose 30 ml .ROUTE .STK-MED ONE Stop: 04/14/19 08:09 Last Admin: 04/14/19 10:10 Dose: 30 ml Cefazolin Sodium (Ancef) Confirm Administered Dose 2 gm .ROUTE .STK-MED ONE Stop: 04/14/19 08:09 Last Admin: 04/14/19 10:08 Dose: 2 gm Cefazolin Sodium (Ancef) Confirm Administered Dose 2 gm .ROUTE .STK-MED ONE Stop: 04/14/19 09:11 Morphine Sulfate 8 mg/Epinephrine HCl 0.3 mg/Cefuroxime Sodium 750 mg/Ketorolac Tromethamine 30 mg/Sodium Chloride 7.9 ml 0 mg .XX ASDIRECTED PRN PRN Reason: Pain Stop: 04/14/19 11:00 Last Admin: 04/14/19 10:09 Dose: 788.3 mg Cyclobenzaprine HCl (Flexeril) 10 mg PO TID PRN PRN Reason: Spasms Docusate Sodium (Colace) 100 mg PO BID [facility] Epinephrine HCl (Adrenalin) Confirm Administered Dose 1 mg .ROUTE .STK-MED ONE Stop: 04/14/19 08:43 Famotidine (Pepcid) 20 mg PO Q12H [facility] Fentanyl (Sublimaze) Confirm Administered Dose 100 mcg .ROUTE .STK-MED ONE Stop: 04/14/19 08:42 Lactated Ringer's (Ringers, Lactated) 1,000 mls @ 125 mls/hr IV ASDIRECTED [facility] Stop: 04/14/19 23:00 Last Admin: 04/14/19 11:35 Dose: 125 mls/hr Lidocaine HCl (Xylocaine-Mpf 1%) Confirm Administered Dose 4 mls @ as directed .ROUTE .STK-MED ONE Stop: 04/14/19 08:41 Iodine (Iodine 2% Mild Tincture) Confirm Administered Dose 30 ml .ROUTE .STK- MED ONE Stop: 04/14/19 08:09 Last Admin: 04/14/19 10:04 Dose: 18 ml Lidocaine/Sodium Bicarbonate (Buffered Lidocaine 1% In Ns 8.4%) 0.25 ml IDERM ONETIME PRN PRN Reason: Prior to IV Start Stop: 04/14/19 18:00 Last Admin: 04/14/19 08:04 Dose: 0.25 ml Magnesium Hydroxide (Milk Of Magnesia) 30 ml PO BID PRN PRN Reason: Constipation Midazolam HCl (Versed 1 Mg/Ml) Confirm Administered Dose 2 mg .ROUTE .STK-MED ONE Stop: 04/14/19 08:42 Miscellaneous Medication (Phenylephrine 1 Mg/10 Ml-Ns) Confirm Administered Dose 1 mg IV .STK-MED ONE Stop: 04/14/19 09:41 Miscellaneous Medication (Phenylephrine 1 Mg/10 Ml-Ns) Confirm Administered Dose 1 mg IV .STK-MED ONE Stop: 04/14/19 13:37 Morphine Sulfate (Morphine) 2 mg IVPUSH Q2H PRN PRN Reason: Breakthrough Pain Naloxone HCl (Narcan) 0.1 mg IVPUSH Q5M PRN PRN Reason: Oversedation Ondansetron HCl (Zofran) 4 mg IVPUSH Q6H PRN PRN Reason: Nausea/Vomiting Ondansetron HCl (Zofran) Confirm Administered Dose 4 mg .ROUTE .STK-MED ONE Stop: 04/14/19 09:47 Oxycodone HCl (Oxycontin) 10 mg PO ONETIME [facility] Stop: 04/14/19 16:00 Last Admin: 04/14/19 07:50 Dose: 10 mg Oxycodone/Acetaminophen (Percocet 325-5 Mg) 1 - 2 tab PO Q4H PRN PRN Reason: Pain Oxycodone/Acetaminophen (Percocet 325-5 Mg) 1 - 2 tab PO Q4H PRN PRN Reason: Pain Last Admin: 04/15/19 05:02 Dose: 2 tab Mometasone Furoate [ (Elocon] 1 Dose) 0 each TOP BID PRN PRN Reason: Itching Pregabalin (Lyrica) 50 mg PO ONETIME [facility] Stop: 04/14/19 16:00 Last Admin: 04/14/19 07:50 Dose: 50 mg Propofol (Diprivan 20 Ml) Confirm Administered Dose 400 mg .ROUTE .STK-MED ONE Stop: 04/14/19 08:45 Propofol (Diprivan 20 Ml) Confirm Administered Dose 200 mg .ROUTE .STK-MED ONE Stop: 04/14/19 09:53 Senna (Senna) 8.6 mg PO BID PRN PRN Reason: Constipation Sodium Chloride (Saline Flush) 10 ml FLUSH ASDIRECTED PRN PRN Reason: Keep Vein Open Stop: 04/14/19 18:00 Tranexamic Acid (Cyklokapron) Confirm Administered Dose 1,000 mg .ROUTE .STK- MED ONE Stop: 04/14/19 08:09 Last Admin: 04/14/19 10:17 Dose: 1,000 mg Vancomycin HCl (Vancomycin) Confirm Administered Dose 1 gm .ROUTE .STK-MED ONE Stop: 04/14/19 08:09 Last Admin: 04/14/19 10:12 Dose: 1 gm - Exam Quality Assessment: DVT Prophylaxis. No: Supplemental Oxygen, Urine Catheter General: Alert, Oriented, Cooperative, No Acute Distress HEENT: Pupils Equal, Pupils Reactive, Mucous Membr. Moist/[place] Neck: Supple, Trachea Midline Lungs: Clear to Auscultation, Normal Respiratory Effort Cardiovascular: Regular Rate, Regular Rhythm GI/Abdominal Exam: Normal Bowel Sounds, Soft, Non-Tender, No Distention, No Abnormal Bruit (Female) Exam: Deferred Back Exam: Normal Inspection, Full Range of Motion Extremities: Normal Capillary Refill, Leg Pain (right), Limited Range of Motion , Other (Bandage in place on right leg. Cooling pack in place ) Peripheral Pulses: 2+: Radial (L), Radial (R), Dorsalis Pedis (L), Dorsalis Pedis (R) Skin: Warm, Dry, Intact Wound/Incisions: Dressing Dry and Intact Neurological: No New Focal Deficit Psy/Mental Status: Alert, Normal Affect, Normal Mood Sepsis Event Note - Evaluation Sepsis Screening Result: No Definite Risk - Focused Exam Vital Signs: Vital Signs Temp Pulse Resp BP Pulse Ox 04/15/19 05:03 98.1 F 95 18 121/60 92 L 04/15/19 00:58 98.4 F 79 20 115/55 L 92 L 04/14/19 20:22 98.4 F 80 18 123/68 95 Date Exam was Performed: 04/15/19 Time Exam was Performed: 09:59 Consult PN Assessment/Plan POD#: 1 Procedures: Procedures ASSAY OF LIPASE (09/26/17) ASSAY OF TROPONIN QUANT (09/26/17) COMPLETE CBC W/AUTO DIFF WBC (09/26/17) COMPREHEN METABOLIC PANEL (09/26/17) DRAIN/INJ JOINT/BURSA W/O US (10/10/17) DXA BONE DENSITY AXIAL (12/12/16) ECHO EXAM OF ABDOMEN (09/26/17) ELECTROCARDIOGRAM TRACING (09/26/17) EMERGENCY DEPT VISIT (09/26/17) EMERGENCY DEPT VISIT (08/22/17) HYDRATE IV INFUSION ADD-ON (09/26/17) OCCULT BLOOD FECES (09/26/17) ROUTINE VENIPUNCTURE (09/26/17) THER/PROPH/DIAG INJ IV PUSH (09/26/17) TX/PRO/DX INJ NEW DRUG ADDON (09/26/17) X-RAY EXAM CHEST 2 VIEWS (08/22/17) (1) S/P total hip arthroplasty SNOMED Code(s): 790791089506, 941313185217 Code(s): Z96.649 - PRESENCE OF UNSPECIFIED ARTIFICIAL HIP JOINT Priority: High Current Visit: Yes Qualifiers: Laterality: right Qualified Code(s): Z96.641 - Presence of right artificial hip joint (2) HTN (hypertension) SNOMED Code(s): 53383646 Code(s): I10 - ESSENTIAL (PRIMARY) HYPERTENSION Priority: Medium Current Visit: No Qualifiers: Hypertension type: unspecified Qualified Code(s): I10 - Essential (primary ) hypertension (3) GERD (gastroesophageal reflux disease) SNOMED Code(s): 376919701 Code(s): K21.9 - GASTRO-ESOPHAGEAL REFLUX DISEASE WITHOUT ESOPHAGITIS Priority: Medium Current Visit: No Qualifiers: Esophagitis presence: with esophagitis Qualified Code(s): K21.0 - Gastro- esophageal reflux disease with esophagitis (4) Hypokalemia SNOMED Code(s): 62540709 Code(s): E87.6 - HYPOKALEMIA Priority: Medium Current Visit: No (5) Barretts esophagus SNOMED Code(s): 997055727 Code(s): K22.70 - MARTINEZ'S ESOPHAGUS WITHOUT DYSPLASIA Priority: Medium Current Visit: No Qualifiers: Martinez's esophagus type: with dysplasia of unspecified degree Qualified Code(s): K22.719 - Martinez's esophagus with dysplasia, unspecified; K22.71 - Martinez's esophagus with dysplasia (6) Basal cell carcinoma SNOMED Code(s): 370997774 Code(s): C44.91 - BASAL CELL CARCINOMA OF SKIN, UNSPECIFIED Priority: Low Current Visit: No Qualifiers: Basal cell carcinoma location: unspecified site Qualified Code(s): C44.91 - Basal cell carcinoma of skin, unspecified (7) Gout SNOMED Code(s): 24027643 Code(s): M10.9 - GOUT, UNSPECIFIED Priority: Low Current Visit: No Qualifiers: Gout site: unspecified site Gout etiology: unspecified cause Chronicity: unspecified Qualified Code(s): M10.9 - Gout, unspecified (8) History of Helicobacter pylori infection SNOMED Code(s): 90071791472066288 Code(s): Z86.19 - PERSONAL HISTORY OF OTHER INFECTIOUS AND PARASITIC DISEASES Priority: Low Current Visit: No (9) Osteoarthritis SNOMED Code(s): 712490571 Code(s): M19.90 - UNSPECIFIED OSTEOARTHRITIS, UNSPECIFIED SITE Priority: High Current Visit: Yes Qualifiers: Osteoarthritis location: hip Osteoarthritis type: primary Laterality: right Qualified Code(s): M16.11 - Unilateral primary osteoarthritis, right hip (10) Cervical disc disease SNOMED Code(s): 238874907 Code(s): M50.90 - CERVICAL DISC DISORDER, UNSP, UNSPECIFIED CERVICAL REGION Current Visit: Yes (11) Hiatal hernia SNOMED Code(s): 47967752 Code(s): K44.9 - DIAPHRAGMATIC HERNIA WITHOUT OBSTRUCTION OR GANGRENE Current Visit: Yes (12) Transaminitis SNOMED Code(s): 931368588, 052478777 Code(s): R74.0 - NONSPEC ELEV OF LEVELS OF TRANSAMNS & LACTIC ACID DEHYDRGNSE Priority: Medium Current Visit: Yes Problem List Initiated/Reviewed/Updated: Yes Plan: I/P: Acute: S/P right total hip arthroplasty - post-operative day 1 -DVT prophylaxis and pain management per primary care team -PT/OT -IS/RT -Monitor oxygen saturation -Titrate oxygen as needed -Home medications reviewed -Vital signs stable -Monitor labs -Pre-operative Hgb was 15.5; Now 13.2 -Pre-operative GFR was 67; Now >60 -Pre-operative 12-lead EKG showed sinus rhythm with PACs at 60 BPM Osteoarthritis of right hip -Pain management per primary care team Post-operative transaminitis -Pre-operative AST 23; [id number] -Pre- operative ALT 22; Now 256 -Pre- operative Alk phos 120; 110 -Avoid hepatotoxic medications if able Chronic: HTN GERD Hypokalemia Martinez's esophagus BCC Gout History of H. Pylori Cervical disk disease Hiatal hernia Plan: CM for discharge planning GI prophylaxis Home medications as indicated Other orders as listed above Routine AM labs She is a full code. Her PCP is Angelika Jones PA-C From a hospitalist standpoint Stephie is doing well. She has been up ambulating with therapies. Pain is controlled. Her labs and vital signs remain stable with the exception of her liver enzymes being mildly elevated. Vital signs have been stable. She is off of oxygen and has urinated. She has been utilizing her IS. She has had some mild nausea and vomiting this AM with movement. Nursing gave zofran and primary team is prescribing home zofran. She is cleared for discharge pending primary team and PT/OT agreement. Thank you for allowing us to participate in the care of this patient!!
[2019-04-15] MEDS: Docusate Sodium 100 MG Cap PO SCH (08:33)
[2019-04-15] MEDS: Famotidine 20 MG Tab PO SCH (08:34)
[2019-04-15] MEDS ORDERED: Rosuvastatin 10 MG Tab PO SCH (09:00)
[2019-04-15] MEDS ORDERED: Aspirin 325 MG Tab.EC PO SCH ×2 (09:00→09:45)
[2019-04-15] MEDS ORDERED: Cholecalciferol (Vitamin D3) 5,000 UNIT Tab PO SCH (09:00)
[2019-04-15] MEDS ORDERED: Diltiazem IR 30 MG Tab PO SCH (09:00)
--- NOTE | 2019-04-15 11:54 | PCM.DCSUM1 ---
Discharge Summary - Hospital Course Brief History: Stephie is a 69 yo female who underwent right DANIEL with Dr. Dubois on 04-14-2019. The procedure was completed under spinal anesthesia with sedation. The pt tolerated the procedure well and was admitted to the Medical- Surgical Unit. Medical management was provided by the Hospitalist service. The pt's Hospital course was remarkable for elevated LFTs noted. The pt's Hgb on POD#1 was 13.2. On POD#1, 325mg ASA BID was initiated for VTE prophylaxis. SCDs and TEDs were also ordered. A Mepilex dressing was placed at the incision site at the time of surgery and remained clean and dry. The pt participated in P.T. and O.T. and progressed well. She followed the DANIEL precautions. The pt was allowed to WBAT. On POD#1, the pt was deemed appropriate to discharge to home with her . The pt will attend outpatient P.T. and will follow-up with her primary care provider. Diagnosis: Stroke: No - Discharge Data Discharge Date: 04/15/19 Discharge Disposition: Home, Self-Care 01 Condition: Good - Referral to Home Health Primary Care Physician: MALICK Damon - Patient Summary/Data Consults: Consultations 04/14/19 06:35 OT Evaluation and Treatment [CONS] Routine PT Evaluation and Treatment [CONS] Routine 04/14/19 06:37 Consult to Physician [CONS] Routine - Patient Instructions Diet: Usual Diet as Tolerated Activity: Apply Ice, Elevate Extremity, Full Weight Bearing Activity, Other: Follow the total hip precautions. Driving: Do Not Drive Showering/Bathing: May Shower Wound/Incision Care: Keep Operative Site/Wound Site Clean and Dry, Do NOT Change Dressing Notify Provider of: Fever, Increased Pain, Swelling and Redness, Drainage, Nausea and/or Vomiting Other/Special Instructions: Please get up and moving around EVERY HOUR while awake. This helps to prevent blood clots. Please use your walker and have help with mobility as needed. Take a short walk in your home every hour while awake. Please take 325mg Aspirin TWICE daily. The aspirin is being used for blood clot prevention and not for pain management so please do not miss a dose of the medication. You could use a medication like Pepcid or Tagamet and a medication like Prilosec or Nexium to protect your stomach while you are using the aspirin. At home, please complete the exercises that you learned during the Hospital stay. Schedule for physical therapy. Follow the total hip precautions. Use the pain medication as needed. The medication may cause drowsiness and constipation. Contact your primary care provider for instructions if you are constipated. You may use a stool softener like docusate sodium or Colace 100mg twice daily and/or a laxative like Miralax daily for constipation. Increase your water and fiber intake while you are using the pain medication. Discontinue use of the pain medication as soon as able. Please do not use other medications that may cause drowsiness (other pain medications, anxiety pills, cold medications, sleeping pills, etc) while using the prescription pain medication. Do not use alcohol while using the pain medication. Your liver tests were elevated after surgery. This is sometimes seen after surgery and resolves with time. However, due to the elevated liver tests, please follow-up with your primary care provider to have the tests rechecked. Also, please to not use Tylenol or acetaminophen at this time. At this time, please do not use ibuprofen (Motrin, Advil) or naproxen ( Aleve) for pain management as you are using the aspirin. When the aspirin course is completed in 5 weeks, you could use ibuprofen or naproxen for pain management (if this is allowed by your primary care provider). Wear the JEANNE hose during the day and you may remove these at night. Elevate the limb to decrease swelling. Place ice to the hip often. Place a towel between your skin and the blue pad. Use the incentive spirometer often. Take deep breaths throughout the day. Please keep the dressing in place until follow-up. Notify the Clinic if the dressing becomes saturated. Increase your protein intake while you are healing. If you have diabetes, please closely monitor your blood sugars and notify your primary care provider with abnormal values. Elevated blood sugars increases the risk of infection. Call the Clinic with questions or concerns - [phone]. - Discharge Plan *PRESCRIPTION DRUG MONITORING PROGRAM REVIEWED*: No *COPY OF PRESCRIPTION DRUG MONITORING REPORT IN PATIENT GREGORY: No Prescriptions/Med Rec: Aspirin [Ecotrin EC] 325 mg PO BID #70 tab.ec Cyclobenzaprine [Flexeril] 10 mg PO BID PRN #30 tablet PRN Reason: Spasms Ondansetron [Zofran ODT] 4 mg PO Q6H PRN #10 tab.dis PRN Reason: Nausea oxyCODONE 5 - 10 mg PO Q4H PRN #60 tablet PRN Reason: Pain Home Medications: Home Meds Cholecalciferol (Vitamin D3) [Vitamin D3] 5,000 unit PO DAILY 04/13/19 [History] Diltiazem HCl [Diltiazem 12Hr ER] 90 mg PO DAILY 04/13/19 [History] Mometasone Furoate [Elocon] 1 dose TOP BID PRN 04/13/19 [History] Rosuvastatin [Crestor] 5 mg PO DAILY 04/13/19 [History] diphenhydrAMINE HCl [Benadryl] 25 mg PO DAILY PRN 04/13/19 [History] Aspirin [Ecotrin EC] 325 mg PO BID #70 tab.ec 04/15/19 [Rx] Cyclobenzaprine [Flexeril] 10 mg PO BID PRN #30 tablet 04/15/19 [Rx] Docusate Sodium [Colace] 100 mg PO BID cap 04/15/19 [Rx] Famotidine [Pepcid] 20 mg PO Q12H tablet 04/15/19 [Rx] Magnesium Hydroxide [Milk of Magnesia] 30 ml PO BID PRN cup 04/15/19 [Rx] Ondansetron [Zofran ODT] 4 mg PO Q6H PRN #10 tab.dis 04/15/19 [Rx] Sennosides [Senna] 8.6 mg PO BID PRN tablet 04/15/19 [Rx] bisacodyL [Dulcolax] 5 mg PO DAILY PRN tablet 04/15/19 [Rx] oxyCODONE 5 - 10 mg PO Q4H PRN #60 tablet 04/15/19 [Rx] Oxygen Therapy Mode: Room Air Patient Handouts: Total Hip Replacement, [id number] Referrals: Liane Zavala PA-C [Physician Laundry Tech] - (please attend the scheduled follow up appointment with Liane Zavala on at 1215 04/28/2019 at 1215 and 05/26/2019 at 1215) - Discharge Summary/Plan Comment DC Time >30 min.: No - Patient Data Vitals - Most Recent: Last Vital Signs Temp 97.9 F 04/15/19 08:27 Pulse 88 04/15/19 08:27 Resp 16 04/15/19 08:27 BP 134/70 04/15/19 08:27 Pulse Ox 92 L 04/15/19 08:27 Weight - Most Recent: 167 lb 14.4 oz I&O - Last 24 hours: Intake & Output 04/14/19 04/15/19 04/15/19 22:59 06:59 14:59 Intake Total 1320 450 120 Output Total 1500 Balance 1320 -1050 120 Lab Results - Last 24 hrs: Laboratory Results - last 24 hr 04/15/19 04/15/19 Range/Units 05:15 05:15 WBC 10.82 H (3.98-10.04) K/mm3 RBC 4.47 (3.98-5.22) M/mm3 Hgb 13.2 (11.2-15.7) gm/dl Hct 41.2 (34.1-44.9) % MCV 92.2 (79.4-94.8) fl MCH 29.5 (25.6-32.2) pg MCHC 32.0 L (32.2-35.5) g/dl RDW Std Deviation 47.1 H (36.4-46.3) fL Plt Count 213 (182-369) K/mm3 MPV 10.5 (9.4-12.3) fl Sodium 138 (136-145) mEq/L Potassium 3.7 (3.5-5.1) mEq/L Chloride 102 (98-107) mEq/L Carbon Dioxide 26 (21-32) mEq/L Anion Gap 13.7 (5-15) BUN 12 (7-18) mg/dL Creatinine 0.9 (0.55-1.02) mg/dL Est Cr Clr Drug Dosing 42.97 mL/min Estimated GFR (MDRD) > 60 (>60) mL/min BUN/Creatinine Ratio 13.3 L (14-18) Glucose 124 H (80-115) mg/dL Calcium 8.5 (8.5-10.1) mg/dL Total Bilirubin 0.6 (0.2-1.0) mg/dL AST 221 H (15-37) U/L ALT 256 H (14-59) U/L Alkaline Phosphatase 110 (46-116) U/L Total Protein 6.9 (6.4-8.2) g/dl Albumin 3.3 L (3.4-5.0) g/dl Globulin 3.6 gm/dL Albumin/Globulin Ratio 0.9 L (1-2) Med Orders - Current: Current Medications Aspirin (Ecotrin) 325 mg PO BID [facility] Last Admin: 04/15/19 09:47 Dose: 325 mg Bisacodyl (Dulcolax) 5 mg PO DAILY PRN PRN Reason: Constipation Cholecalciferol (Vitamin D3) 5,000 unit PO DAILY [facility] Last Admin: 04/15/19 08:33 Dose: 5,000 unit Cyclobenzaprine HCl (Flexeril) 10 mg PO TID PRN PRN Reason: Spasms Last Admin: 04/15/19 08:34 Dose: 10 mg Diltiazem HCl (Cardizem) 90 mg PO DAILY [facility] Last Admin: 04/15/19 08:34 Dose: 90 mg Diphenhydramine HCl (Benadryl) 25 mg PO DAILY PRN PRN Reason: Allergies Docusate Sodium (Colace) 100 mg PO BID [facility] Last Admin: 04/15/19 08:33 Dose: 100 mg Famotidine (Pepcid) 20 mg PO Q12H [facility] Last Admin: 04/15/19 08:34 Dose: 20 mg Ketorolac Tromethamine (Toradol) 15 mg IVPUSH Q6H PRN PRN Reason: Pain Magnesium Hydroxide (Milk Of Magnesia) 30 ml PO BID PRN PRN Reason: Constipation Morphine Sulfate (Morphine) 2 mg IVPUSH Q2H PRN PRN Reason: Breakthrough Pain Naloxone HCl (Narcan) 0.1 mg IVPUSH Q5M PRN PRN Reason: Oversedation Ondansetron HCl (Zofran) 4 mg IVPUSH Q6H PRN PRN Reason: Nausea/Vomiting Last Admin: 04/15/19 09:39 Dose: 4 mg Oxycodone HCl (Oxycodone) 5 - 10 mg PO Q4H PRN PRN Reason: Pain Last Admin: 04/15/19 09:48 Dose: 10 mg Mometasone Furoate [ (Elocon] Ointment) 0 each TOP BID PRN PRN Reason: Itching Rosuvastatin Calcium (Crestor) 5 mg PO DAILY [facility] Last Admin: 04/15/19 08:35 Dose: 5 mg Senna (Senna) 8.6 mg PO BID PRN PRN Reason: Constipation Discontinued Medications Acetaminophen (Tylenol) 975 mg PO ONETIME [facility] Stop: 04/14/19 16:00 Last Admin: 04/14/19 07:50 Dose: 975 mg Aspirin (Ecotrin) 325 mg PO BID [facility] Last Admin: 04/15/19 10:29 Dose: Not Given Bisacodyl (Dulcolax) 5 mg PO DAILY PRN PRN Reason: Constipation Bupivacaine HCl (Sensorcaine-Mpf 0.25%) Confirm Administered Dose 30 ml .ROUTE .STK-MED ONE Stop: 04/14/19 08:09 Last Admin: 04/14/19 10:10 Dose: 30 ml Cefazolin Sodium (Ancef) Confirm Administered Dose 2 gm .ROUTE .STK-MED ONE Stop: 04/14/19 08:09 Last Admin: 04/14/19 10:08 Dose: 2 gm Cefazolin Sodium (Ancef) Confirm Administered Dose 2 gm .ROUTE .STK-MED ONE Stop: 04/14/19 09:11 Morphine Sulfate 8 mg/Epinephrine HCl 0.3 mg/Cefuroxime Sodium 750 mg/Ketorolac Tromethamine 30 mg/Sodium Chloride 7.9 ml 0 mg .XX ASDIRECTED PRN PRN Reason: Pain Stop: 04/14/19 11:00 Last Admin: 04/14/19 10:09 Dose: 788.3 mg Cyclobenzaprine HCl (Flexeril) 10 mg PO TID PRN PRN Reason: Spasms Docusate Sodium (Colace) 100 mg PO BID [facility] Epinephrine HCl (Adrenalin) Confirm Administered Dose 1 mg .ROUTE .STK-MED ONE Stop: 04/14/19 08:43 Famotidine (Pepcid) 20 mg PO Q12H [facility] Fentanyl (Sublimaze) Confirm Administered Dose 100 mcg .ROUTE .STK-MED ONE Stop: 04/14/19 08:42 Lactated Ringer's (Ringers, Lactated) 1,000 mls @ 125 mls/hr IV ASDIRECTED KIMI Stop: 04/14/19 23:00 Last Admin: 04/14/19 11:35 Dose: 125 mls/hr Cefazolin Sodium/Dextrose 2 gm (/ Premix) 50 mls @ 100 mls/hr IV Q8H [facility] Stop: 04/15/19 09:44 Last Admin: 04/15/19 08:29 Dose: 100 mls/hr Lidocaine HCl (Xylocaine-Mpf 1%) Confirm Administered Dose 4 mls @ as directed .ROUTE .STK-MED ONE Stop: 04/14/19 08:41 Iodine (Iodine 2% Mild Tincture) Confirm Administered Dose 30 ml .ROUTE .STK- MED ONE Stop: 04/14/19 08:09 Last Admin: 04/14/19 10:04 Dose: 18 ml Lidocaine/Sodium Bicarbonate (Buffered Lidocaine 1% In Ns 8.4%) 0.25 ml IDERM ONETIME PRN PRN Reason: Prior to IV Start Stop: 04/14/19 18:00 Last Admin: 04/14/19 08:04 Dose: 0.25 ml Magnesium Hydroxide (Milk Of Magnesia) 30 ml PO BID PRN PRN Reason: Constipation Midazolam HCl (Versed 1 Mg/Ml) Confirm Administered Dose 2 mg .ROUTE .STK-MED ONE Stop: 04/14/19 08:42 Miscellaneous Medication (Phenylephrine 1 Mg/10 Ml-Ns) Confirm Administered Dose 1 mg IV .STK-MED ONE Stop: 04/14/19 09:41 Miscellaneous Medication (Phenylephrine 1 Mg/10 Ml-Ns) Confirm Administered Dose 1 mg IV .STK-MED ONE Stop: 04/14/19 13:37 Morphine Sulfate (Morphine) 2 mg IVPUSH Q2H PRN PRN Reason: Breakthrough Pain Naloxone HCl (Narcan) 0.1 mg IVPUSH Q5M PRN PRN Reason: Oversedation Ondansetron HCl (Zofran) 4 mg IVPUSH Q6H PRN PRN Reason: Nausea/Vomiting Ondansetron HCl (Zofran) Confirm Administered Dose 4 mg .ROUTE .STK-MED ONE Stop: 04/14/19 09:47 Oxycodone HCl (Oxycontin) 10 mg PO ONETIME [facility] Stop: 04/14/19 16:00 Last Admin: 04/14/19 07:50 Dose: 10 mg Oxycodone/Acetaminophen (Percocet 325-5 Mg) 1 - 2 tab PO Q4H PRN PRN Reason: Pain Oxycodone/Acetaminophen (Percocet 325-5 Mg) 1 - 2 tab PO Q4H PRN PRN Reason: Pain Last Admin: 04/15/19 05:02 Dose: 2 tab Mometasone Furoate [ (Elocon] 1 Dose) 0 each TOP BID PRN PRN Reason: Itching Pregabalin (Lyrica) 50 mg PO ONETIME KIMI Stop: 04/14/19 16:00 Last Admin: 04/14/19 07:50 Dose: 50 mg Propofol (Diprivan 20 Ml) Confirm Administered Dose 400 mg .ROUTE .STK-MED ONE Stop: 04/14/19 08:45 Propofol (Diprivan 20 Ml) Confirm Administered Dose 200 mg .ROUTE .STK-MED ONE Stop: 04/14/19 09:53 Senna (Senna) 8.6 mg PO BID PRN PRN Reason: Constipation Sodium Chloride (Saline Flush) 10 ml FLUSH ASDIRECTED PRN PRN Reason: Keep Vein Open Stop: 04/14/19 18:00 Tranexamic Acid (Cyklokapron) Confirm Administered Dose 1,000 mg .ROUTE .STK- MED ONE Stop: 04/14/19 08:09 Last Admin: 04/14/19 10:17 Dose: 1,000 mg Vancomycin HCl (Vancomycin) Confirm Administered Dose 1 gm .ROUTE .STK-MED ONE Stop: 04/14/19 08:09 Last Admin: 04/14/19 10:12 Dose: 1 gm
--- NOTE | 2019-04-19 13:27 | PCM.OPNOTE ---
- General Post-Op/Procedure Note Date of Surgery/Procedure: 04/14/19 Operative Procedure(s): righth total hip arthroplasty Pre Op Diagnosis: right hip osteoarthrosis Post-Op Diagnosis: Same Anesthesia Technique: Local, MAC, Spinal Primary Surgeon: Kleber Dubois Anesthesia Provider: Jhonatan Masters Forest Resource Specialist: Liane Zavala Forest Resource Specialist: Cristy Clinton EBL in mLs: 100 Complications: None Condition: Good Free Text/Narrative:: 5 stem 50 cup 36+0
--- NOTE | 2019-04-21 07:30 | OR ---
DATE OF OPERATION: 04/14/2019 SURGEON: Kleber Dubois MD OPERATION PERFORMED: Right total hip arthroplasty. PREOPERATIVE DIAGNOSIS: Right hip osteoarthrosis. POSTOPERATIVE DIAGNOSIS: Right hip osteoarthrosis. ANESTHESIA: Local MAC with spinal. ANESTHESIA PROVIDER: Beverly Carrasquillo. ASSISTANTS: Liane Zavala PA-C, and Cristy Clinton LPN. ESTIMATED BLOOD LOSS: 100 mL. COMPLICATIONS: None. CONDITION: Stable. IMPLANTS: 1. [place] Pool size 4 Accolade II stem. 2. Chuckie size 4 solid 50 mm Tritanium II acetabular cup. 3. Chuckie size 36 +0 Biolox femoral head. DESCRIPTION OF PROCEDURE: The patient was identified in the preoperative holding area. Proper site was marked and identified by surgeon. The patient was taken back to the operating theater where after adequate anesthesia, she was placed in a left lateral decubitus position. Axillary roll was placed. Pegs were then placed and were well padded. The patient's gluteal fold was parallel to the floor. Right hip was then sterilely prepped and draped in the usual sterile fashion. OR time-out was performed. The patient received 2 g of IV Ancef. Standard posterior incision was made centered over the greater trochanter. This was taken down to the IT band and gluteal fascia which was incised along the incisional length. Short external rotators were identified and takedown of the short external rotators as well as a capsulotomy was done from the level of the piriformis down to the lesser trochanter. The hip was then dislocated and neck cut was completed. Attention was turned to the acetabulum. Anterior and posterior acetabular retractors were placed. Circumferential removal of the labrum was then done as well as removal of the pulvinar. Starting with a 46 reamer, I was able to ream up to a 50, which was found to have adequate purchase. A 50 mm Tritanium II acetabular cup was then impacted into place roughly 45 to 50 degrees abduction and 20 to 30 degrees of anteversion. The 36 flat liner was then impacted into place and attention was turned to the femur. Box chisel was used out laterally. Starter awl was placed down the canal and starting with the 0 broach, I was able to broach up to a size 4 which was found to be rotationally and vertically stable. 127 degree neck was applied to the trial broach and a 36 +0 trial head. The patient had adequate anabaptism of leg lengths after it was relocated and had stability throughout range of motion. Bone hook had to be used to dislocate the hip. The trial components were removed and the size 4 Accolade II stem was then impacted into place along with a 36 +0 Biolox femoral head. The hip was then relocated. A #5 Ethibond suture was used for closure of the short external rotators and capsule. 1 L dilute Betadine solution was irrigated through the hip along with 3 L pulse lavage irrigation with Ancef. Topical tranexamic acid and vancomycin powder were applied. #2 barbed suture was used for closure of IT band and gluteal fascia, 2-0 Vicryl was used subcutaneously, and Prineo used for the skin. The patient tolerated the procedure well and sent to PACU in stable condition. MMODAL /[id number]
== END 2019-04-15 11:41 | disposition home or self-care (01) | DRG 470 ==
LOC: JD.MS 07:34
PROVIDERS: ADMIT Orthopaedic Surgery; ATTEND Orthopaedic Surgery
PROC: 0SR901Z Replacement of Right Hip Joint with Metal Synthetic Substitute, Open Approach (ICD-10-PCS; principal; 2019-04-14)
DX: M16.11 Unilateral primary osteoarthritis, right hip (principal); M10.9 Gout, unspecified; I10 Essential (primary) hypertension; H54.7 Unspecified visual loss; R74.0 Nonspecific elevation of levels of transaminase and lactic acid dehydrogenase [LDH]; K21.0 Gastro-esophageal reflux disease with esophagitis; Z88.1 Allergy status to other antibiotic agents; Z79.82 Long term (current) use of aspirin; Z79.899 Other long term (current) drug therapy; Z87.19 Personal history of other diseases of the digestive system; Z85.828 Personal history of other malignant neoplasm of skin; Z90.49 Acquired absence of other specified parts of digestive tract; Z98.890 Other specified postprocedural states; Z99.81 Dependence on supplemental oxygen
CPT/HCPCS: 01214; 36415; 73501-26-RT; 73501-RT; 80053; 85027; 86850; 86900; 86901; 87641; 97110-GP; 97116-GP; 97161-GP; 97165-GO; 97535-GO; 99222; 99231; A9270-GY; C1776; J0171; J0690; J0697; J1885; J2001; J2250; J2270; J2370; J2405; J2704; J3010; J3370; J3490; J7120

== ENCOUNTER 2023-04-09 10:39 | Emergency (ER) | payer MEDICARE, BC ==
[2023-04-09 11:04] LABS: BASOPHILS PERCENT AUTO 0.4 % (0.0-1.0); EOSINOPHILS ABSOLUTE AUTO 0.1 K/mm3 (0.0-0.4); EOSINOPHILS PERCENT AUTO 0.8 % (0.0-6.0); HEMATOCRIT 40.2 % (37.0-47.0); HEMOGLOBIN 13.1 gm/dl (12.0-16.0); IMMATURE GRAN ABSOLUTE AUTO 0.05 K/mm3 (0.00-0.05); IMMATURE GRAN PERCENT AUTO 0.4 % (0.0-0.4); LYMPHOCYTES ABSOLUTE AUTO 2.8 K/mm3 (1.0-4.8); LYMPHOCYTES PERCENT AUTO 25.2 % (24.0-44.0); MEAN CORPUSCULAR HEMOGLOBIN 30.3 pg (28.0-32.0); MEAN CORPUSCULAR HGB CONC 32.6 g/dl (32.0-36.0); MEAN CORPUSCULAR VOLUME 92.8 fl (83.0-99.0); MEAN PLATELET VOLUME 10.1 fl (9.4-12.3); MONOCYTES ABSOLUTE AUTO 0.8 K/mm3 (0.0-0.8); MONOCYTES PERCENT AUTO 7.4 % (0.0-8.0); NEUTROPHILS ABSOLUTE AUTO 7.4 K/mm3 (1.8-7.7); NEUTROPHILS PERCENT AUTO 65.8 % (41.0-71.0); PLATELET COUNT,PLT 219 K/mm3 (150-400); RED BLOOD CELL COUNT 4.33 M/mm3 (4.10-5.30); WHITE BLOOD CELL COUNT,WBC 11.22 K/mm3 (3.9-11.3)
[2023-04-09] MEDS: Metoclopramide 10 MG/2 ML SDV IVPUSH ONE (11:04)
[2023-04-09] MEDS: Aspirin 81 MG Tab.Chew PO ONE (11:04)
[2023-04-09] MEDS: fentaNYL 100 MCG/2 ML SDV IVPUSH ONE ×2 (11:04→14:50)
[2023-04-09] MEDS: Dextrose 5%-0.9% NaCl 1,000 ML IV SCH (11:05)
[2023-04-09 11:19] LABS: ANION GAP 11.7 (5-15); BUN/CREATININE RATIO 18.8 (14-18); CALCIUM 8.7 mg/dL (8.5-10.1); CREATININE 0.8 mg/dL (0.55-1.02); EST CRCL DRUG DOSING (CG) 45.66 mL/min; POTASSIUM,K 3.7 mEq/L (3.5-5.1)
[2023-04-09 11:20] LABS: A/G RATIO 0.9 (1-2); ALBUMIN 3.4 g/dl (3.4-5.0); BILIRUBIN TOTAL 0.3 mg/dL (0.2-1.0); MAGNESIUM 1.7 mg/dL (1.8-2.4)
[2023-04-09] MEDS: Nitroglycerin/D5W 25 MG/250 ML BOTTLE IV SCH (11:27)
[2023-04-09 11:50] LABS: INR 1.06; PROTHROMBIN TIME 11.3 SECONDS (9.7-12.0)
[2023-04-09 11:51] LABS: PTT,PARTIAL THROMBOPLSTIN TIME 23.8 SECONDS (21.7-31.4)
[2023-04-09] MEDS: Hyoscyamine 0.125 MG Tab.SL SL ONE (16:48)
== END 2023-04-09 17:15 | disposition home or self-care (01) ==
LOC: JD.ED 10:39
DX: R07.89 Other chest pain (principal); K44.9 Diaphragmatic hernia without obstruction or gangrene; Z96.642 Presence of left artificial hip joint; I10 Essential (primary) hypertension; Z90.49 Acquired absence of other specified parts of digestive tract; Z79.82 Long term (current) use of aspirin; Z79.899 Other long term (current) drug therapy; Z88.8 Allergy status to other drugs, medicaments and biological substances; Z88.2 Allergy status to sulfonamides
CPT/HCPCS: 36415; 71045; 80053; 83605; 83735; 83880; 84484; 85025; 85610; 85730; 93005; 96365; 96366; 96375; 96376; 99285; A9270; C1758; J2305; J2765; J3010; J7042; 01214; 73501-26-LT; 73501-LT; 86850; 86900; 86901; 93010; 97116-GP; 97161-GP; 99284; C1713; C1776; J0171; J0690; J0697; J1596; J1885; J2250; J2270; J2371; J2704; J3370; J3490; J7030; J7120

== ENCOUNTER 2024-01-06 14:15 | Emergency (ER) | payer MEDICARE, BC | END 2024-01-06 16:50 | disposition home or self-care (01) | LOC: JD.ED 14:15 | DX: I80.02 Phlebitis and thrombophlebitis of superficial vessels of left lower extremity (principal); Z98.890 Other specified postprocedural states; I10 Essential (primary) hypertension; M19.90 Unspecified osteoarthritis, unspecified site; Z90.49 Acquired absence of other specified parts of digestive tract; Z88.2 Allergy status to sulfonamides; Z88.8 Allergy status to other drugs, medicaments and biological substances; Z79.82 Long term (current) use of aspirin; Z79.899 Other long term (current) drug therapy | CPT/HCPCS: 93971-26-LT; 93971-LT; 99283 ==